=== PATIENT | male | born 1970 | race Two or more races ===

== ENCOUNTER 2022-04-04 19:07 | Emergency (ER) | payer OTHER ==
[~2022-04-04] VITALS: Ht 182.9 cm; Wt 81.6 kg
--- NOTE | 2022-04-04 19:10 | NUR ---
To ER bed 8, [id number], from home, c/o Bilateral flank pain x months, fever today 101.4 F, nausea and vomiting, aaox3, breathing even and non labored, connected to monitor
--- NOTE | 2022-04-04 19:10 | NUR ---
Note facundo in EDM - 04/04/22 at 1923 by AMINATA To ER bed 8, [email or web address], from home, c/o Bilateral flank pain x months, fever today 101.4 F, nausea and vomiting, aaox3, breathing eevn
--- NOTE | 2022-04-04 19:21 | NUR ---
SALINE LOCK ESTABLISHED, BLOOD DRAWN AND SENT TO LAB
[2022-04-04] MEDS ORDERED: IV NS 0.9% 1,000 ML BAG IV ONE (19:30)
[2022-04-04] MEDS ORDERED: ONDANSETRON HCL/PF 4 MG/2 ML VIAL IVP ONE (19:30)
--- NOTE | 2022-04-04 19:39 | NUR ---
RECEIVED REPORT FROM HALIE MICHELLE FOR RAMIRO
[2022-04-04 19:41] LABS: BASOPHILS % (AUTO) 0.3 % (0.0-2.0); EOSINOPHILS % (AUTO) 0.3 % (0.0-6.0); HEMATOCRIT 39 % (39-51); HEMOGLOBIN 13.4 g/dL (13.5-17.5); LYMPHOCYTES # (AUTO) 0.9 K/uL (0.8-4.8); LYMPHOCYTES % (AUTO) 10.2 % (20.0-44.0); MEAN CORPUSCULAR HGB CONC 35 g/dl (31.0-36.0); MEAN CORPUSCULAR VOLUME 94 fL (80-96); MONOCYTES # (AUTO) 0.5 K/uL (0.1-1.30); MONOCYTES % (AUTO) 5.3 % (2.0-12.0); NEUTROPHILS # (AUTO) 7.6 K/uL (1.8-8.9); NEUTROPHILS % (AUTO) 83.9 % (43.0-81.0); PLATELET COUNT (AUTO) 225 K/uL (150-450)
[2022-04-04 19:50] LABS: CALCIUM, SERUM 9.2 mg/dL (8.5-10.1); POTASSIUM 3.3 mmol/L (3.5-5.1)
[2022-04-04 19:56] LABS: ALBUMIN 3.8 g/dL (3.4-5.0); BILIRUBIN,DIRECT 0.1 mg/dL (0.0-0.2); BILIRUBIN,TOTAL 0.6 mg/dL (0.2-1.0); TOTAL PROTEIN, SERUM 7.3 g/dL (6.4-8.2)
[2022-04-04] MEDS ORDERED: KETOROLAC TROMETHAMINE INJ 30 MG/ML VIAL IV ONE ×2 (20:00→23:30)
[2022-04-04] MEDS ORDERED: MORPHINE SULFATE INJ 2 MG/ML DISP.SYRIN IV ONE ×2 (20:00→22:30)
[2022-04-04] MEDS ORDERED: ONDANSETRON HCL/PF 4 MG/2 ML VIAL ONE (20:01)
[2022-04-04] MEDS ORDERED: MORPHINE SULFATE INJ 4 MG/ML DISP.SYRIN ONE ×2 (20:01→22:31)
[2022-04-04] MEDS ORDERED: KETOROLAC TROMETHAMINE 15 MG/ML VIAL ONE ×2 (20:01→23:27)
--- NOTE | 2022-04-04 20:09 | NUR ---
FOUND PT IN BED STATING HAVING PAIN 9/10 ON P/S. PAIN MEDS ADMINISTERED ORDERED BY MD. WILL CONTINUE TO MONITOR.
[2022-04-04] MEDS ORDERED: IV NS 0.9% 1,000 ML IV ONE (22:30)
--- NOTE | 2022-04-04 22:35 | NUR ---
PT AMBULATED TO BATHROOM, STEADY GAIT NOTED
[2022-04-04 23:11] LABS: BILIRUBIN,URINE NEGATIVE (NEGATIVE); COLOR,URINE YELLOW (YELLOW); LEUKOCYTE ESTERASE ,URINE NEGATIVE (NEGATIVE); NITRITE, URINE NEGATIVE (NEGATIVE); PROTEIN,URINE NEGATIVE (NEGATIVE); UGLUCOSE NEGATIVE (NEGATIVE); UROBILINOGEN,URINE 0.2 EU/dL (0.2)
[2022-04-04] MEDS ORDERED: ACETAMINOPHEN 325 MG TABLET ONE (23:27)
[2022-04-04] MEDS ORDERED: ACETAMINOPHEN 325 MG TABLET PO ONE (23:30)
[2022-04-04] MEDS ORDERED: DOXY100C2 PO (23:57)
[2022-04-04] MEDS ORDERED: IBUP-1955 PO (23:57)
[2022-04-04] MEDS ORDERED: AMOX-430 PO (23:57)
[2022-04-05] MEDS ORDERED: DOXY100C2 PO (00:04)
[2022-04-05] MEDS ORDERED: IBUP-1955 PO (00:04)
[2022-04-05] MEDS ORDERED: AMOX-430 PO (00:04)
[2022-04-05] MEDS ORDERED: ONDA4TAB5 PO (00:04)
[2022-04-05 00:10] VITALS: BP 145/69
--- NOTE | 2022-04-05 00:10 | NUR ---
Patient discharged to home in stable condition. Written and verbal after care instructions given. Patient verbalizes understanding of instruction.
== END 2022-04-05 00:11 | disposition home or self-care (01) ==
LOC: ER 19:09
DX: J18.9 Pneumonia, unspecified organism (principal); Z20.822 Contact with and (suspected) exposure to COVID-19; R10.9 Unspecified abdominal pain; E87.6 Hypokalemia; E11.65 Type 2 diabetes mellitus with hyperglycemia; Z90.49 Acquired absence of other specified parts of digestive tract
CPT/HCPCS: 36415; 74176; 80048; 80076; 81003; 83690; 85025; 96361; 96374; 96375; 96376; 99284; C9803; J1885 ×2; J2270 ×2; J2405; J7030 ×2; U0003